=== PATIENT | male | born 1970 | race Caucasian/White ===

== ENCOUNTER 2021-03-11 00:38 | Emergency (ER) | payer SELFPAY ==
[~2021-03-11] VITALS: Ht 182.9 cm; Wt 90.7 kg
== END 2021-03-11 01:54 | disposition home or self-care (01) ==
LOC: ED 00:38
DX: S40.011A Contusion of right shoulder, initial encounter (principal); V49.9XXA Car occupant (driver) (passenger) injured in unspecified traffic accident, initial encounter; F17.200 Nicotine dependence, unspecified, uncomplicated
CPT/HCPCS: 73030; 99284-25